=== PATIENT | male | born 1995 | race Caucasian/White ===

== ENCOUNTER 2023-02-08 17:16 | Emergency (ER) | payer OTHER ==
[~2023-02-08] VITALS: Ht 180.3 cm; Wt 63.5 kg
[2023-02-08 17:36] VITALS: BP 155/87; PULSE 79; RESP 14; TEMP 98; O2SAT 98
[2023-02-08] MEDS ORDERED: IBUP-2213 PO (17:52)
[2023-02-08] MEDS ORDERED: LORA10TA19 PO (17:52)
== END 2023-02-08 18:00 | disposition home or self-care (01) ==
LOC: MED 17:16
DX: H73.011 Bullous myringitis, right ear (principal); Z79.899 Other long term (current) drug therapy
CPT/HCPCS: 99282